=== PATIENT | female | born 2000 | race Caucasian/White ===

== ENCOUNTER 2018-10-23 18:22 | Emergency (ER) | payer OTHER ==
[~2018-10-23] VITALS: Ht 165.1 cm; Wt 74.4 kg
[2018-10-23 18:37] VITALS: BP 131/41; Ht 165.1 cm; Wt 74.4 kg
== END 2018-10-23 20:22 | disposition left against medical advice (07) ==
LOC: ED 18:22
DX: Z53.21 Procedure and treatment not carried out due to patient leaving prior to being seen by health care provider (principal)
CPT/HCPCS: 87491; 87591